=== PATIENT | female | born 1940 | race Caucasian/White ===

== ENCOUNTER 2017-06-17 06:12 | Day surgery (SDC) | payer MEDICARE ==
[~2017-06-17 06:12] MED LIST: ACETAMINOPHEN 325 MG TAB PO
[2017-06-17] MEDS: LIDOCAINE 3.5 % 1ML OPHTH TOPICAL GEL OU (06:30)
[2017-06-17] MEDS: PHENYLEPHRINE 2.5% OPHTH SOL 2ML XX (06:35)
[2017-06-17] MEDS: TROPICAMIDE 1% OPHTH SOLN 2ML XX (06:35)
[2017-06-17] MEDS: OFLOXACIN 0.3 % (OCUFLOX) OPTH SOL 5ML XX (06:35)
[2017-06-17] MEDS: CYCLOPENTOLATE 2% OPHTH SOLN 2ML BTL XX (06:35)
[2017-06-17] MEDS ORDERED: PHENYLEPHRINE HCL 10 % OPHTH. SOL 5ML XX (07:00)
[2017-06-17] MEDS ORDERED: PROPARACAINE 0.5% OPHTH SOL 15ML OS (07:01)
[2017-06-17] MEDS ORDERED: MIDAZOLAM INJ 2 MG/2 ML VIAL (J2250) As Ordered (07:04)
[2017-06-17] MEDS ORDERED: fentaNYL 100 MCG/2 ML INJECTION (J3010) As Ordered (07:04)
[2017-06-17] MEDS: POVIDONE-IODINE 5% OPHTH PREP SOL 30ML As Ordered (07:32)
[2017-06-17] MEDS: LIDOCAINE 2% W/EPIN INJ 20ML **PRES FREE As Ordered (07:33)
[2017-06-17] MEDS: MOXIFLOXACIN IN BSS 0.25MG/0.25ML INTRACAMERAL INJ (OR EYE ONLY)(J2280) As Ordered (07:33)
[2017-06-17] MEDS: LIDOCAINE 1% SDV 5 ML VIAL As Ordered (07:33)
[2017-06-17] MEDS: BSS with VANC/TOB/EPI for EYE CASES IR (07:33)
[2017-06-17] MEDS: HEALON DUET (HEALON 10MG/ML 0.55ML & HEALON ENDOCOAT 30MG/ML 0.85ML) As Ordered (07:33)
[2017-06-17] MEDS: TRIAMCINOLONE PRES FR 40 MG/ML 1ML(TRIESENCE)(OR EYE ONLY)(J3300 PER 1MG) As Ordered (07:33)
[2017-06-17] MEDS ORDERED: AcetaZOLAMIDE 500 MG ER CAP As Ordered (07:56)
[2017-06-17] MEDS: AcetaZOLAMIDE 500 MG ER CAP PO (08:06)
[2017-06-17] MEDS ORDERED: KETOROLAC 0.5% OPHTH SOLN OS (08:15)
[2017-06-17] MEDS ORDERED: TRIMETHOBENZAMIDE 300 MG CAP PO (08:15)
== END 2017-06-17 08:32 | disposition home or self-care (01) ==
LOC: M SDC 06:12
DX: H25.9 Unspecified age-related cataract (principal); I25.2 Old myocardial infarction; Z98.61 Coronary angioplasty status; I10 Essential (primary) hypertension; E78.5 Hyperlipidemia, unspecified; K21.9 Gastro-esophageal reflux disease without esophagitis; Z79.82 Long term (current) use of aspirin; Z79.899 Other long term (current) drug therapy
CPT/HCPCS: 66984

== ENCOUNTER 2017-07-13 08:52 | Day surgery (SDC) | payer MEDICARE ==
[~2017-07-13 08:52] MED LIST changes: +PHENYLEPHRINE HCL 10 % OPHTH. SOL 5ML OD
[2017-07-13] MEDS ORDERED: TRIMETHOBENZAMIDE 300 MG CAP PO (09:00)
[2017-07-13] MEDS: LIDOCAINE 3.5 % 1ML OPHTH TOPICAL GEL OU (11:02)
[2017-07-13] MEDS: TROPICAMIDE 1% OPHTH SOLN 2ML OD (11:02)
[2017-07-13] MEDS: PHENYLEPHRINE 2.5% OPHTH SOL 2ML OD (11:02)
[2017-07-13] MEDS: OFLOXACIN 0.3 % (OCUFLOX) OPTH SOL 5ML OD (11:02)
[2017-07-13] MEDS: CYCLOPENTOLATE 2% OPHTH SOLN 2ML BTL OD (11:02)
[2017-07-13] MEDS ORDERED: MIDAZOLAM INJ 2 MG/2 ML VIAL (J2250) As Ordered (11:25)
[2017-07-13] MEDS ORDERED: fentaNYL 100 MCG/2 ML INJECTION (J3010) As Ordered (11:25)
[2017-07-13 11:33] LABS: BEDSIDE GLUCOSE 91 MG/DL (83-110)
[2017-07-13] MEDS ORDERED: METOPROLOL 5 MG/5 ML VIAL As Ordered (11:45)
[2017-07-13] MEDS ORDERED: hydrALAZINE INJ 20 MG/ML VIAL As Ordered (11:47)
[2017-07-13] MEDS: TRIAMCINOLONE PRES FR 40 MG/ML 1ML(TRIESENCE)(OR EYE ONLY)(J3300 PER 1MG) As Ordered (11:48)
[2017-07-13] MEDS: POVIDONE-IODINE 5% OPHTH PREP SOL 30ML As Ordered (11:48)
[2017-07-13] MEDS: BSS with VANC/TOB/EPI for EYE CASES IR (11:48)
[2017-07-13] MEDS: LIDOCAINE 1% SDV 5 ML VIAL As Ordered (11:48)
[2017-07-13] MEDS: MOXIFLOXACIN IN BSS 0.25MG/0.25ML INTRACAMERAL INJ (OR EYE ONLY)(J2280) As Ordered (11:48)
[2017-07-13] MEDS: HEALON DUET (HEALON 10MG/ML 0.55ML & HEALON ENDOCOAT 30MG/ML 0.85ML) As Ordered (11:48)
[2017-07-13] MEDS: AcetaZOLAMIDE 500 MG ER CAP PO (12:35)
== END 2017-07-13 12:40 | disposition home or self-care (01) ==
LOC: M SDC 08:52
DX: H25.9 Unspecified age-related cataract (principal); I10 Essential (primary) hypertension; I25.2 Old myocardial infarction; K59.00 Constipation, unspecified; Z79.899 Other long term (current) drug therapy; Z98.61 Coronary angioplasty status; E78.5 Hyperlipidemia, unspecified
CPT/HCPCS: 66984